=== PATIENT | male | born 1980 | race Two or more races ===

== ENCOUNTER 2020-05-13 11:15 | Inpatient (IN) | payer OTHER ==
[~2020-05-13] VITALS: Ht 175.3 cm; Wt 86.2 kg
[~2020-05-13 11:15] MED LIST: AMBIEN10 MG PO; CIPRO750 MG PO; Colace 100MG PO; NEURONTIN PO; PERCOCET 5/3251 TAB PO
[2020-05-13] MEDS ORDERED: TAMS0.4C PO (13:26)
[2020-05-13] MEDS ORDERED: BENADRYL25 MG PO (13:27)
[2020-05-13] MEDS ORDERED: CLONAZEPAM2 MG PO (13:27)
[2020-05-17] MEDS ORDERED: GABAPENTIN800 MG PO (07:52)
[2020-05-17] MEDS ORDERED: PERCOCET 5-3251 EACH PO (10:21)
[2020-05-17] MEDS ORDERED: DIAZEPAM5 MG PO (10:21)
[2020-05-17] MEDS ORDERED: COLACE100 MG PO (10:21)
== END 2020-05-18 13:34 | disposition home or self-care (01) | DRG 473 ==
LOC: ADM 11:15 → O/R 05-17 05:00 → SURH 05-17 07:00 → EDSTATUS 05-17 11:15 → ADM 05-17 11:15 → SURH 05-17 11:38
PROVIDERS: ADMIT Orthopaedic Surgery Orthopaedic Surgery of the Spine; ATTEND Orthopaedic Surgery Orthopaedic Surgery of the Spine
PROC: 0RT30ZZ Resection of Cervical Vertebral Disc, Open Approach (ICD-10-PCS; 2020-05-17)
PROC: 0RG20A0 Fusion of 2 or more Cervical Vertebral Joints with Interbody Fusion Device, Anterior Approach, Anterior Column, Open Approach (ICD-10-PCS; principal; 2020-05-17 07:00)
DX: M50.021 Cervical disc disorder at C4-C5 level with myelopathy (principal); M50.121 Cervical disc disorder at C4-C5 level with radiculopathy